=== PATIENT | male | born 1970 | race Caucasian/White ===

== ENCOUNTER 2017-05-29 13:26 | Emergency (ER) | payer MEDICARE ==
[2017-05-29 15:46] LABS: BILIRUBIN,URINE NEGATIVE (NEG); CLARITY,URINE CLEAR; COLOR,URINE YELLOW; GLUCOSE,URINE NEGATIVE (NEG); NITRITE,URINE NEGATIVE (NEG); PH,URINE 6.5; PROTEIN,URINE NEGATIVE (NEG-TRACE)
[2017-05-29 15:53] LABS: BARBITURATES NEG (NEG); BENZODIAZEPINES NEG (NEG); CANNABINOIDS POS (NEG); COCAINE NEG (NEG); METHADONE NEG (NEG); OPIATES NEG (NEG); PHENCYCLIDINE NEG (NEG)
[2017-05-29 16:00] LABS: AMPHETAMINE/METHAMPHETAMINE POS (NEG); ETHANOL, URINE NEG (NEG)
[2017-05-29] MEDS: IV NORMAL SALINE 1000ML BAG 1,000 ML IV ×2 (16:01)
[2017-05-29 16:02] LABS: BACTERIA,URINE 0 /HPF (0-FEW); RBC,URINE 0 /HPF (0-2); WBC,URINE 0 /HPF (0-4)
[2017-05-29 16:16] LABS: ADD MAN DIFF? NO
[2017-05-29 16:17] LABS: BASO # 0.1 x10^3/uL (0.0-0.2); BASO % 1 % (0-3); EOS % 0 % (0-3); HEMATOCRIT 44.2 % (39.0-53.0); HEMOGLOBIN 15.3 g/dL (13.0-17.5); LYMPH # 2.7 x10^3/uL (1.0-4.8); LYMPH % 32 % (24-48); MEAN CORPUSCULAR HEMOGLOBIN 27 pg (25-35); MEAN CORPUSCULAR HGB CONC 35 g/dL (31-37); MEAN CORPUSCULAR VOLUME 79 fL (79-100); MONO # 0.5 x10^3/uL (0.0-1.1); MONO % 6 % (0-9); NEUT # 5.2 x10^3uL (1.8-7.7); NEUT % 61 % (31-73); PLATELET COUNT 331 x10^3/uL (140-400); RED BLOOD COUNT 5.62 x10^6/uL (4.30-5.70); RED CELL DISTRIBUTION WIDTH 13.7 % (11.5-14.5); WHITE BLOOD COUNT 8.5 x10^3/uL (4.0-11.0)
[2017-05-29 16:50] LABS: INFLUENZA A PATIENT NEGATIVE (NEGATIVE); INFLUENZA B PATIENT NEGATIVE (NEGATIVE); OBC FLU VALID
[2017-05-29 17:07] LABS: AGAP ISTAT 15 mmol/L (6-14); BUN ISTAT 13 mg/dL (8-26); CHLORIDE ISTAT 97 mmol/L (98-110); GLUCOSE ISTAT 142 mg/dL (70-99); HEMATOCRIT ISTAT 46 % (37-52); HEMOGLOBIN ISTAT 15.6 g/dL (14-18); POTASSIUM ISTAT 4.2 mmol/L (3.5-5.0); SODIUM ISTAT 137 mmol/L (135-145); TOT CO2 ISTAT 31 mmol/L (23-32)
[2017-05-29 17:58] LABS: ANION GAP 10 (6-14); BLOOD UREA NITROGEN 13 mg/dL (8-26); BUN/CREATININE RATIO 14 (6-20); CARBON DIOXIDE 28 mmol/L (21-32); CHLORIDE 100 mmol/L (98-107); CREATININE 0.9 mg/dL (0.7-1.3); GFR 91.3; GLUCOSE 140 mg/dL (70-99); POTASSIUM 4.6 mmol/L (3.5-5.1); SODIUM 138 mmol/L (136-145)
[2017-05-29 18:00] LABS: ETHANOL < 10 mg/dL (0-10)
[2017-05-29 18:07] LABS: TROPONINI < 0.017 ng/mL (0.000-0.055)
[2017-05-29 18:07] LABS: ALBUMIN 3.4 g/dL (3.4-5.0); ALBUMIN/GLOBULIN RATIO 0.9 (1.0-1.7); ALK PHOS 108 U/L (46-116); ALT (SGPT) 84 U/L (16-63); AST (SGOT) 43 U/L (15-37); TOTAL BILIRUBIN 0.6 mg/dL (0.2-1.0); TOTAL PROTEIN 7.2 g/dL (6.4-8.2)
== END 2017-05-29 17:50 | disposition home or self-care (01) ==
LOC: ER 13:26
DX: R53.1 Weakness (principal); B34.9 Viral infection, unspecified; E78.00 Pure hypercholesterolemia, unspecified; F90.9 Attention-deficit hyperactivity disorder, unspecified type; I10 Essential (primary) hypertension; F41.9 Anxiety disorder, unspecified; F32.9 Major depressive disorder, single episode, unspecified
CPT/HCPCS: 36415; 71045; 80047; 80053; 80307; 81001; 84484; 85025; 87804; 87804-59; 93005; 96360; 96361; 99285-25; G0480; J7030

== ENCOUNTER 2017-10-03 01:41 | Emergency (ER) | payer MEDICARE ==
[2017-10-03] MEDS: HYDROcodone/APAP 5/325MG 1 TAB TABLET PO (02:48)
[2017-10-03] MEDS: IBUPROFEN 800 MG TABLET. PO (02:48)
== END 2017-10-03 02:52 | disposition home or self-care (01) ==
LOC: ER 01:41
DX: K08.89 Other specified disorders of teeth and supporting structures (principal); I10 Essential (primary) hypertension; E78.00 Pure hypercholesterolemia, unspecified; F90.9 Attention-deficit hyperactivity disorder, unspecified type
CPT/HCPCS: 99283

== ENCOUNTER 2018-02-10 00:36 | Emergency (ER) | payer MEDICARE ==
[~2018-02-10] VITALS: Ht 172.7 cm; Wt 77.1 kg
[~2018-02-10 00:36] MED LIST: ATOR10TA60 PO; CLIN300C8 PO; DEXT20TA24 PO; ERGO500027 PO; HYDR-971 PO; IBUP-1060 PO; ICOS0.5C PO; LOSA100T7 PO; OLOP2.5D EACHEYE; VENL150C6 PO
[2018-02-10] MEDS ORDERED: HYDR-971 PO (00:49)
[2018-02-10] MEDS ORDERED: PENI500T PO (00:49)
--- NOTE | 2018-02-10 00:49 | PHYS DOC ---
Past Medical History Past Medical History: Anxiety, Depression, High Cholesterol, Hypertension, Other Additional Past Medical Histor: ADHD,H/A'S Past Surgical History: No Surgical History Alcohol Use: None Drug Use: None Adult General Chief Complaint Chief Complaint: DENTAL PROBLEM HPI HPI Patient is a 47 year old [f__sex] who presents with [] Review of Systems Review of Systems Constitutional: Denies fever or chills [] Eyes: Denies change in visual acuity, redness, or eye pain [] HENT: Denies nasal congestion or sore throat [] Respiratory: Denies cough or shortness of breath [] Cardiovascular: No additional information not addressed in HPI [] GI: Denies abdominal pain, nausea, vomiting, bloody stools or diarrhea [] : Denies dysuria or hematuria [] Musculoskeletal: Denies back pain or joint pain [] Integument: Denies rash or skin lesions [] Neurologic: Denies headache, focal weakness or sensory changes [] Endocrine: Denies polyuria or polydipsia [] All other systems were reviewed and found to be within normal limits, except as documented in this note. Allergies Allergies Allergies Coded Allergies Type Severity Reaction Last Updated Verified No Known Drug Allergies 07/08/15 No Physical Exam Physical Exam Constitutional: Well developed, well nourished, no acute distress, non-toxic appearance. [] HENT: Normocephalic, atraumatic, bilateral external ears normal, oropharynx moist, no oral exudates, nose normal. [] Eyes: PERRLA, EOMI, conjunctiva normal, no discharge. [] Neck: Normal range of motion, no tenderness, supple, no stridor. [] Cardiovascular:Heart rate regular rhythm, no murmur [] Lungs & Thorax: Bilateral breath sounds clear to auscultation [] Abdomen: Bowel sounds normal, soft, no tenderness, no masses, no pulsatile masses. [] Skin: Warm, dry, no erythema, no rash. [] Back: No tenderness, no CVA tenderness. [] Extremities: No tenderness, no cyanosis, no clubbing, ROM intact, no edema. [] Neurologic: Alert and oriented X 3, normal motor function, normal sensory function, no focal deficits noted. [] Psychologic: Affect normal, judgement normal, mood normal. [] EKG EKG [] Radiology/Procedures Radiology/Procedures [] Course & Med Decision Making Course & Med Decision Making Pertinent Labs and Imaging studies reviewed. (See chart for details) [] Dragon Disclaimer Dragon Disclaimer This electronic medical record was generated, in whole or in part, using a voice recognition dictation system. Departure Departure Impression: Primary Impression: Pain, dental Disposition: HOME, SELF-CARE Condition: GOOD Referrals: CLAUDE CODY MD (PCP) Patient Instructions: Dental Pain Scripts Hydrocodone/Apap 5-325 (NORCO 5-325 TABLET) 1 Each Tablet 1 TAB PO PRN Q6HRS PRN for PAIN, #14 TAB 0 Refills Prov: PIPO PINON APRN 02/10/18 Penicillin V Potassium (PENICILLIN V POTASSIUM) 500 Mg Tablet 1 TAB PO TID, #30 TAB Prov: PIPO PINON APRN 02/10/18 PIPO PINON APRN Feb 10, 2018 00:49
[2018-02-10 00:50] VITALS: BP 174/98
== END 2018-02-10 01:02 | disposition home or self-care (01) ==
LOC: ER 00:36
DX: K08.89 Other specified disorders of teeth and supporting structures (principal); I10 Essential (primary) hypertension; E78.00 Pure hypercholesterolemia, unspecified
CPT/HCPCS: 99283

== ENCOUNTER 2018-02-20 00:27 | Emergency (ER) | payer MEDICARE ==
[~2018-02-20] VITALS: Ht 172.7 cm; Wt 80.9 kg
[~2018-02-20 00:27] MED LIST changes: +PENI500T PO
[2018-02-20 00:32] VITALS: BP 174/98
--- NOTE | 2018-02-20 00:57 | PHYS DOC ---
Past Medical History Past Medical History: Anxiety, Depression, High Cholesterol, Hypertension, Other Additional Past Medical Histor: ADHD,H/A'S Past Surgical History: No Surgical History Alcohol Use: None Drug Use: None Adult General Chief Complaint Chief Complaint: MULTIPLE COMPLAINTS HPI HPI Patient is a 47 year old male who presents with several complaints 1 diarrhea. This been present for the past several days. No blood in the stool. Diffuse abdominal cramping is present. Worse with food or drink. No fever. Patient also has nausea but has not thrown up. 2 upper respiratory infection symptoms, nasal congestion, sore throat. Worse with laying down. No relief with over-the- counter Mucinex liquid. No cough. Slightly better with upright position. Reports diffuse myalgias that improve with [id number] ibuprofen but feels nauseated with that.[] Review of Systems Review of Systems Constitutional: Denies fever or chills [] Eyes: Denies change in visual acuity, redness, or eye pain [] HENT: See history of present illness[] Respiratory: Denies cough or shortness of breath [] Cardiovascular: Chest pain or palpitations[] GI: No blood in the stool, no foul odor to the stool[] : Denies dysuria or hematuria [] Musculoskeletal: Denies back pain or joint pain [] Integument: Denies rash or skin lesions [] Neurologic: Denies headache, focal weakness or sensory changes [] Endocrine: Denies polyuria or polydipsia [] All other systems were reviewed and found to be within normal limits, except as documented in this note. Allergies Allergies Allergies Coded Allergies Type Severity Reaction Last Updated Verified No Known Drug Allergies 07/08/15 No Physical Exam Physical Exam Constitutional: Well developed, well nourished, no acute distress, non-toxic appearance. [] HENT: Normocephalic, atraumatic, bilateral external ears normal, oropharynx moist, no oral exudates, nose with clear rhinorrhea. Positive postnasal drainage. [] Eyes: PERRLA, EOMI, conjunctiva normal, no discharge. [] Neck: Normal range of motion, no tenderness, supple, no stridor. [] Cardiovascular:Heart rate regular rhythm, no murmur [] Lungs & Thorax: Bilateral breath sounds clear to auscultation [] Abdomen: Bowel sounds normal, soft, no tenderness, no masses, no pulsatile masses. [] Skin: Warm, dry, no erythema, no rash. [] Back: No tenderness, no CVA tenderness. [] Extremities: No tenderness, no cyanosis, no clubbing, ROM intact, no edema. [] Neurologic: Alert and oriented X 3, normal motor function, normal sensory function, no focal deficits noted. [] Psychologic: Affect normal, judgement normal, mood normal. [] EKG EKG [] Radiology/Procedures Radiology/Procedures [] Course & Med Decision Making Course & Med Decision Making Pertinent Labs and Imaging studies reviewed. (See chart for details) Medical decision-making: Nontoxic patient who has diarrhea. He was recently placed on antibiotics approximately 10 days ago. Do not believe this to be Clostridium difficile. Believe this to be an upper respiratory infection. Patient is nontoxic, oropharynx is clear side from postnasal drainage. Lungs were clear, do not believe this to be an pneumonia process. Patient is afebrile , do not believe this to be an influenza issue. We will attempt better outpatient management of symptoms and have patient start eating yogurt to recolonize his gut with healthy bacteria.[] Dragon Disclaimer Dragon Disclaimer This electronic medical record was generated, in whole or in part, using a voice recognition dictation system. Departure Departure Impression: Primary Impression: Upper respiratory infection Additional Impression: Diarrhea Disposition: ADMITTED INPATIENT Condition: GOOD Referrals: CLAUDE CODY MD (PCP) Follow-up in 2 days Patient Instructions: Diarrhea, Upper Respiratory Infection, Adult Additional Instructions: Follow-up with your regular doctor in 2 days. Drink plenty of fluids. Avoid fatty foods, milk, and pepper. These may make the diarrhea worse. Eat a carbohydrate rich diet for the next 48 hours, this includes bananas, rice, applesauce, and toast. Also add yogurt to your diet to help recolonize your gut with good bacteria. Return to the ER if there is blood in your stool, you develop a fever, and able to tolerate liquids, or any other concerns Problem Qualifiers Primary Impression: Upper respiratory infection URI type: unspecified URI Qualified Codes: J06.9 - Acute upper respiratory infection, unspecified Additional Impression: Diarrhea Diarrhea type: unspecified type Qualified Codes: R19.7 - Diarrhea, unspecified CHELI DUMONT DO Feb 20, 2018 00:57
[2018-02-20] MEDS ORDERED: HYDR-971 PO (20:32)
[2018-02-20] MEDS ORDERED: IBUP-1060 PO (20:32)
== END 2018-02-20 01:10 | disposition home or self-care (01) ==
LOC: ER 00:27
DX: R19.7 Diarrhea, unspecified (principal); J06.9 Acute upper respiratory infection, unspecified; R10.84 Generalized abdominal pain; M79.10 Myalgia, unspecified site; I10 Essential (primary) hypertension; E78.00 Pure hypercholesterolemia, unspecified; F90.9 Attention-deficit hyperactivity disorder, unspecified type
CPT/HCPCS: 99283

== ENCOUNTER 2018-02-20 19:27 | Emergency (ER) | payer MEDICARE ==
[~2018-02-20] VITALS: Ht 172.7 cm; Wt 78.9 kg
[2018-02-20 19:32] VITALS: BP 154/92
[2018-02-20] MEDS ORDERED: IBUP-1060 PO (20:32)
[2018-02-20] MEDS ORDERED: HYDR-971 PO (20:32)
--- NOTE | 2018-02-20 20:33 | PHYS DOC ---
Past Medical History Past Medical History: Anxiety, Depression, High Cholesterol, Hypertension, Other Additional Past Medical Histor: ADHD,H/A'S Past Surgical History: No Surgical History Alcohol Use: None Drug Use: None Adult General Chief Complaint Chief Complaint: HEADACHE HPI HPI Patient is a 47 year old male who presents with was here last night at midnight for same complaints with having a sinus headache, body aches, viral symptoms. Patient states that he talked to his primary care doctor today and he has an appointment tomorrow. The primary care doctor said that she is to call in 800 mg of ibuprofen but when he went to the pharmacy was not there. Patient rates his pain a 10 out of 10. He is alert and oriented. Temperature is 98.4, 99 heart rate, 154/92, 99% on room air. Ambulatory. States he's been taking 1 Tylenol every 4 hours for his pain. Review of Systems Review of Systems Constitutional: Denies fever or chills [] Eyes: Denies change in visual acuity, redness, or eye pain [] HENT: Denies nasal congestion or sore throat [] Respiratory: Denies cough or shortness of breath [] Cardiovascular: No additional information not addressed in HPI [] GI: Denies abdominal pain, nausea, vomiting, bloody stools or diarrhea [] : Denies dysuria or hematuria [] Musculoskeletal: Denies back pain or joint pain [] Integument: Denies rash or skin lesions [] Neurologic: Frontal headache. Denies focal weakness or sensory changes [] All other systems were reviewed and found to be within normal limits, except as documented in this note. Allergies Allergies Allergies Coded Allergies Type Severity Reaction Last Updated Verified No Known Drug Allergies 07/08/15 No Physical Exam Physical Exam Constitutional: Well developed, well nourished, no acute distress, non-toxic appearance. [] HENT: Normocephalic, atraumatic, bilateral external ears normal, oropharynx moist, no oral exudates, nose normal. [] Eyes: PERRLA, EOMI, conjunctiva normal, no discharge. [] Neck: Normal range of motion, no tenderness, supple, no stridor. [] Cardiovascular:Heart rate regular rhythm, no murmur [] Lungs & Thorax: Bilateral breath sounds clear to auscultation [] Abdomen: Bowel sounds normal, soft, no tenderness, no masses, no pulsatile masses. [] Skin: Warm, dry, no erythema, no rash. [] Back: No tenderness, no CVA tenderness. [] Extremities: No tenderness, no cyanosis, no clubbing, ROM intact, no edema. [] Neurologic: Alert and oriented X 3, normal motor function, normal sensory function, no focal deficits noted. [] Psychologic: Affect normal, judgement normal, mood normal. [] Current Patient Data Vital Signs Vital Signs Date Time Temp Pulse Resp B/P (MAP) Pulse Ox O2 Delivery O2 Flow Rate FiO2 02/20/18 19:32 98.4 99 16 154/92 (112) 98 Room Air 98.4 EKG EKG [] Radiology/Procedures Radiology/Procedures [] Course & Med Decision Making Course & Med Decision Making Patient is a 47 year old male who presents with was here last night at midnight for same complaints with having a sinus headache, body aches, viral symptoms. Patient states that he talked to his primary care doctor today and he has an appointment tomorrow. The primary care doctor said that she is to call in 800 mg of ibuprofen but when he went to the pharmacy was not there. Patient rates his pain a 10 out of 10. He is alert and oriented. Temperature is 98.4, 99 heart rate, 154/92, 99% on room air. Ambulatory. States he's been taking 1 Tylenol every 4 hours for his pain. Skin pink warm and dry. Lungs are clear to auscultation all lobes. Heart rate regular no murmur. Afebrile. PERRLA. Patient is nontoxic appearing states he is just wanting Vicodin for his pain. Patient will be given a prescription for 4 [place] and he is to follow-up with his primary care as scheduled tomorrow. Patient is stable and in no distress. Dragon Disclaimer Dragon Disclaimer This electronic medical record was generated, in whole or in part, using a voice recognition dictation system. Departure Departure Impression: Primary Impression: Headache Disposition: HOME, SELF-CARE Condition: STABLE Referrals: HERLINDA ZAMUDIO APRN (PCP) Patient Instructions: General Headache Without Cause Additional Instructions: Follow-up with her primary care tomorrow as scheduled. Take medications as prescribed. Scripts Hydrocodone/Apap 5-325 (NORCO 5-325 TABLET) 1 Each Tablet 1 TAB PO PRN Q6HRS PRN for PAIN, #4 TAB 0 Refills Prov: BENOIT UNGER GAS ENGINE OPERATOR 02/20/18 Ibuprofen (IBUPROFEN) 800 Mg Tablet 800 MG PO PRN Q6HRS PRN for INFLAMMATION, #10 TAB Prov: BENIOT UNGER GAS ENGINE OPERATOR 02/20/18 Problem Qualifiers Primary Impression: Headache Headache type: unspecified Headache chronicity pattern: chronic headache Intractability: not intractable Qualified Codes: R51 - Headache BENOIT UNGER G[employer] ENGINE OPERATOR Feb 20, 2018 20:33
== END 2018-02-20 20:40 | disposition home or self-care (01) ==
LOC: ER 19:27
DX: R51 Headache (principal); M79.10 Myalgia, unspecified site; E78.00 Pure hypercholesterolemia, unspecified; I10 Essential (primary) hypertension; F41.9 Anxiety disorder, unspecified; F32.9 Major depressive disorder, single episode, unspecified; F90.9 Attention-deficit hyperactivity disorder, unspecified type
CPT/HCPCS: 99283

== ENCOUNTER 2018-03-08 20:22 | Emergency (ER) | payer MEDICARE ==
[~2018-03-08] VITALS: Ht 172.7 cm; Wt 79.4 kg
[~2018-03-08 20:22] MED LIST changes: +HYDR-3164 PO; -HYDR-971 PO
[2018-03-08] MEDS ORDERED: cloNIDine HCL 0.1 MG TABLET PO ONE (21:00)
[2018-03-08] MEDS ORDERED: ACETAMINOPHEN 500 MG TABLET PO ONE (21:00)
[2018-03-08 21:01] VITALS: BP 131/81
--- NOTE | 2018-03-09 03:31 | PHYS DOC ---
Past Medical History Past Medical History: Anxiety, Depression, High Cholesterol, Hypertension, Migraines, Other Additional Past Medical Histor: ADHD,H/A'S, Insomnia Past Surgical History: No Surgical History Alcohol Use: None Drug Use: None Adult General Chief Complaint Chief Complaint: HEADACHE HPI HPI Patient is a 47 year old male with history of ADD, insomnia and recurrent migraines who presents migraine-like headache. Patient states he has been unable to sleep for the past 2 evening and is currently out of Ambien. He is requesting an Ambien refill. Orts typical migraine-like headache with dull throbbing frontal headache. No nausea vomiting or photophobia. Patient states he does not have appointment with his primary care physician until March 19 in that he requires medications to help himself of sleep. Denies change in headaches severity location and quality or duration. This is not the worst headache of the patient's life. [] Review of Systems Review of Systems Review symptoms as prescribed. All other systems were reviewed and found to be within normal limits, except as documented in this note. Current Medications Current Medications Current Medications Medications (Trade) Dose Ordered Sig/Day Start Time Stop Time Status Last Admin Dose Admin Acetaminophen (Tylenol) 1,000 mg 1X ONCE 03/08/18 21:00 03/08/18 21:01 DC 03/08/18 21:03 1,000 MG Clonidine HCl (Catapres) 0.2 mg 1X ONCE 03/08/18 21:00 03/08/18 21:07 DC Allergies Allergies Allergies Coded Allergies Type Severity Reaction Last Updated Verified No Known Drug Allergies 07/08/15 No Physical Exam Physical Exam Constitutional: Well developed, well nourished, no acute distress, non-toxic appearance. [] HENT: Normocephalic, atraumatic, bilateral external ears normal, oropharynx moist, nose normal. [] Eyes: PERRLA, EOMI, conjunctiva normal. [] Neck: Normal range of motion, no tenderness, supple. [] Cardiovascular:Heart rate regular rhythm, no murmur [] Neurologic: Alert and oriented X 3, normal motor function, normal sensory function, no focal deficits noted. [] Psychologic: Affect normal, judgement normal, mood normal. [] Current Patient Data Vital Signs Vital Signs Date Time Temp Pulse Resp B/P (MAP) Pulse Ox O2 Delivery O2 Flow Rate FiO2 03/08/18 21:01 75 97 03/08/18 20:30 98.0 16 176/108 (130) Room Air 98.0 EKG EKG [] Radiology/Procedures Radiology/Procedures [] Course & Med Decision Making Course & Med Decision Making Pertinent Labs and Imaging studies reviewed. (See chart for details) [Pressure improved without treatment. Tylenol provided for headache relief. Discussed with patient that I was not comfortable providing medication refill for Ambien as insomnia as sedative by scope practice but did recommend that he take Ambien and follow-up with his primary care physician.] Dragon Disclaimer Dragon Disclaimer This electronic medical record was generated, in whole or in part, using a voice recognition dictation system. Departure Departure Impression: Primary Impression: Accelerated hypertension Additional Impressions: Insomnia Headache Disposition: 01 HOME, SELF-CARE Condition: GOOD Referrals: AGUSTÍN APONTE MD Patient Instructions: Insomnia-Brief, Migraine Headache, [id number], Hypertension, [id number] Additional Instructions: Please take melatonin and an additional here trazodone for sleep induction. Continue home medications and take this dose of blood pressure medication upon returning home this evening. Follow-up with your PCP for further management of insomnia and upper tension. Return to the ED if new or worsening symptoms. Problem Qualifiers MAN MENEZES DO Mar 09, 2018 03:31
== END 2018-03-08 21:24 | disposition home or self-care (01) ==
LOC: ER 20:22
DX: R51 Headache (principal); I10 Essential (primary) hypertension; G47.00 Insomnia, unspecified; G43.909 Migraine, unspecified, not intractable, without status migrainosus; E78.00 Pure hypercholesterolemia, unspecified; F32.9 Major depressive disorder, single episode, unspecified; F41.9 Anxiety disorder, unspecified; F90.9 Attention-deficit hyperactivity disorder, unspecified type
CPT/HCPCS: 99283

== ENCOUNTER 2018-06-26 06:08 | Emergency (ER) | payer MEDICARE ==
[~2018-06-26] VITALS: Ht 172.7 cm; Wt 77.1 kg
[~2018-06-26 06:08] MED LIST changes: +LOSA100T14 PO; -LOSA100T7 PO
[2018-06-26 06:29] VITALS: BP 148/86
[2018-06-26] MEDS ORDERED: CYCL10TA2 PO (06:46)
[2018-06-26] MEDS ORDERED: PRED20TA PO (06:46)
[2018-06-26] MEDS ORDERED: IBUP-1060 PO (06:46)
--- NOTE | 2018-06-26 06:47 | PHYS DOC ---
Past Medical History Past Medical History: Angina, Anxiety, Depression, Diabetes-Type II, High Cholesterol, Hypertension Additional Past Medical Histor: ADHD,H/A'S, Insomnia Past Surgical History: No Surgical History Alcohol Use: None Drug Use: None Adult General Chief Complaint Chief Complaint: MUSCLE SPASM/CRAMP HPI HPI Patient is a 47 year old presented to ER today for evaluation of left-sided neck pain and muscle spasm in this stiffness for the last 2 days. Patient started symptom after he was studying, bending his neck down to read for a long time. He denies any chest pain, no headache, no fever, no cough. Patient denies any weakness or numbness in his upper extremity. Denied any recent injury. Review of Systems Review of Systems Constitutional: Denies fever or chills [] Eyes: Denies change in visual acuity, redness, or eye pain [] HENT: Denies nasal congestion or sore throat [] Respiratory: Denies cough or shortness of breath [] Cardiovascular: No additional information not addressed in HPI [] GI: Denies abdominal pain, nausea, vomiting, bloody stools or diarrhea [] : Denies dysuria or hematuria [] Musculoskeletal: POSITIVE FOR NECK PAIN AND STIFFNESS. Integument: Denies rash or skin lesions [] Neurologic: Denies headache, focal weakness or sensory changes [] Endocrine: Denies polyuria or polydipsia [] All other systems were reviewed and found to be within normal limits, except as documented in this note. Current Medications Current Medications Current Medications Medications (Trade) Dose Ordered Sig/Day Start Time Stop Time Status Last Admin Dose Admin Dexamethasone Sodium Phosphate (Decadron) 10 mg 1X ONCE 06/26/18 07:00 06/26/18 07:01 Ketorolac Tromethamine (Toradol Im) 60 mg 1X ONCE 06/26/18 07:00 06/26/18 07:01 Allergies Allergies Allergies Coded Allergies Type Severity Reaction Last Updated Verified No Known Drug Allergies 07/08/15 No Physical Exam Physical Exam Constitutional: Well developed, well nourished, no acute distress, non-toxic appearance. [] HENT: Normocephalic, atraumatic, bilateral external ears normal, oropharynx moist, no oral exudates, nose normal. [] Eyes: PERRLA, EOMI, conjunctiva normal, no discharge. [] Neck: left paramuscle tensed and tender, decrease range of motion to the left side. No midline vertebral tenderness. Cardiovascular:Heart rate regular rhythm, no murmur [] Lungs & Thorax: Bilateral breath sounds clear to auscultation [] Abdomen: Bowel sounds normal, soft, no tenderness, no masses, no pulsatile masses. [] Skin: Warm, dry, no erythema, no rash. [] Back: No tenderness, no CVA tenderness. [] Extremities: No tenderness, no cyanosis, no clubbing, ROM intact, no edema. [] Neurologic: Alert and oriented X 3, normal motor function, normal sensory function, no focal deficits noted. [] Psychologic: Affect normal, judgement normal, mood normal. [] Current Patient Data Vital Signs Vital Signs Date Time Temp Pulse Resp B/P (MAP) Pulse Ox O2 Delivery O2 Flow Rate FiO2 06/26/18 06:29 97.7 73 16 148/86 (106) 98 Room Air 97.7 EKG EKG [] Radiology/Procedures Radiology/Procedures [] Course & Med Decision Making Course & Med Decision Making Pertinent Labs and Imaging studies reviewed. (See chart for details) [] Dragon Disclaimer Dragon Disclaimer This electronic medical record was generated, in whole or in part, using a voice recognition dictation system. Departure Departure Impression: Primary Impression: Torticollis, acute Disposition: 01 HOME, SELF-CARE Condition: STABLE Referrals: HERLINDA ZAMUDIO APRN (PCP) follow up with your pcp in two days for reevaluation. Patient Instructions: Torticollis, Acute Scripts Prednisone (PREDNISONE) 20 Mg Tablet 1 TAB PO DAILY, #10 TAB Prov: SAMAN AREVALO DO 06/26/18 Ibuprofen (IBUPROFEN) 800 Mg Tablet 800 MG PO PRN Q8HRS PRN for INFLAMMATION, #30 TAB Prov: SAMAN AREVALO DO 06/26/18 Cyclobenzaprine Hcl (CYCLOBENZAPRINE HCL) 10 Mg Tablet 1 TAB PO TID PRN for MUSCLE SPASMS, #21 TAB Prov: SAMAN AREVALO DO 06/26/18 SAMAN AREVALO DO Jun 26, 2018 06:46
[2018-06-26] MEDS ORDERED: DEXAMETHASONE SOD PHOS 4 MG/ML VIAL IM ONE (07:00)
[2018-06-26] MEDS ORDERED: KETOROLAC 60 MG/2 ML VIAL. IM ONE (07:00)
== END 2018-06-26 07:02 | disposition home or self-care (01) ==
LOC: ER 06:08
DX: M43.6 Torticollis (principal); E78.00 Pure hypercholesterolemia, unspecified; I10 Essential (primary) hypertension; E11.9 Type 2 diabetes mellitus without complications
CPT/HCPCS: 96372; 99283; J1100; J1885

== ENCOUNTER 2019-01-10 11:57 | Emergency (ER) | payer MEDICARE ==
[~2019-01-10] VITALS: Ht 172.7 cm; Wt 78.9 kg
[~2019-01-10 11:57] MED LIST changes: +CYCL10TA2 PO; +PRED20TA PO
[2019-01-10 12:07] VITALS: BP 154/104
[2019-01-10] MEDS ORDERED: ORPH100T PO (13:01)
--- NOTE | 2019-01-10 13:02 | PHYS DOC ---
Past Medical History Past Medical History: Angina, Anxiety, Depression, Diabetes-Type II, High Cholesterol, Hypertension, Other Additional Past Medical Histor: ADHD,H/A'S, Insomnia Past Surgical History: No Surgical History Alcohol Use: None Drug Use: None Adult General Chief Complaint Chief Complaint: LOWER BACK PAIN OR INJURY HPI HPI Patient is a 48 year old male that presents with back pain since yesterday. The patient states that his pain 6 out of 10 in severity and sharp. Patient has history of back pain. Review of Systems Review of Systems Constitutional: Denies fever or chills [] Eyes: Denies change in visual acuity, redness, or eye pain [] HENT: Denies nasal congestion or sore throat [] Respiratory: Denies cough or shortness of breath [] Cardiovascular: No additional information not addressed in HPI [] GI: Denies abdominal pain, nausea, vomiting, bloody stools or diarrhea [] : Denies dysuria or hematuria [] Musculoskeletal: Reports back pain. Integument: Denies rash or skin lesions [] Neurologic: Denies headache, focal weakness or sensory changes [] Endocrine: Denies polyuria or polydipsia [] Complete systems were reviewed and found to be within normal limits, except as documented in this note. Current Medications Current Medications Current Medications Medications (Trade) Dose Ordered Sig/[facility] Start Time Stop Time Status Last Admin Dose Admin Orphenadrine Citrate (Norflex) 60 mg 1X ONCE 01/10/19 13:15 01/10/19 13:16 Allergies Allergies Allergies Coded Allergies Type Severity Reaction Last Updated Verified No Known Drug Allergies 07/08/15 No Physical Exam Physical Exam Constitutional: Well developed, well nourished, no acute distress, non-toxic appearance. [] HENT: Normocephalic, atraumatic, bilateral external ears normal, oropharynx moist, no oral exudates, nose normal. [] Eyes: PERRLA, EOMI, conjunctiva normal, no discharge. [] Neck: Normal range of motion, no tenderness, supple, no stridor. [] Cardiovascular:Heart rate regular rhythm, no murmur [] Lungs & Thorax: Bilateral breath sounds clear to auscultation [] Abdomen: Bowel sounds normal, soft, no tenderness, no masses, no pulsatile masses. [] Skin: Warm, dry, no erythema, no rash. [] Back: Tenderness to right side of back, no spinal tenderness. Extremities: No tenderness, no cyanosis, no clubbing, ROM intact, no edema. [] Neurologic: Alert and oriented X 3, normal motor function, normal sensory function, no focal deficits noted. [] Psychologic: Affect normal, judgement normal, mood normal. [] Current Patient Data Vital Signs Vital Signs Date Time Temp Pulse Resp B/P (MAP) Pulse Ox O2 Delivery O2 Flow Rate FiO2 01/10/19 12:07 97.8 76 18 154/104 (121) 98 Room Air 97.8 EKG EKG [] Radiology/Procedures Radiology/Procedures [] Course & Med Decision Making Course & Med Decision Making Pertinent Labs and Imaging studies reviewed. (See chart for details) Will give IM norflex and write script. Appears to be musculoskeletal in nature. Dragon Disclaimer Dragon Disclaimer This electronic medical record was generated, in whole or in part, using a voice recognition dictation system. Departure Departure Impression: Primary Impression: Musculoskeletal back pain Disposition: HOME, SELF-CARE Condition: STABLE Referrals: HERLINDA ZAMUDIO APRN (PCP) Patient Instructions: Musculoskeletal Pain Additional Instructions: Thank you for visiting [facility]. We appreciate you trusting us with your care. If any additional problems come up don't hesitate to return to visit us. Please follow up with your primary care provider so they can plan additional care if needed and know about the problem that you had. If symptoms worsen come back to the Emergency Department. Any concerning symptoms that start such as chest pain, shortness of air, weakness or numbness on one side of the body, running high fevers or any other concerning symptoms return to the ER. Scripts Orphenadrine Citrate (ORPHENADRINE CITRATE) 100 Mg Tablet.er 1 TAB PO BID PRN for MUSCLE PAIN for 4 Days, #8 TAB Prov: AGUSTÍN CUMMINGS APRN 01/10/19 AGUSTÍN CUMMINGS APRN Jan 10, 2019 13:02
[2019-01-10] MEDS ORDERED: ORPHENADRINE CITRATE 60 MG/2 ML VIAL. IM ONE (13:15)
== END 2019-01-10 13:08 | disposition home or self-care (01) ==
LOC: ER 11:57
DX: M54.5 Low back pain (principal); E78.00 Pure hypercholesterolemia, unspecified; E11.9 Type 2 diabetes mellitus without complications; I10 Essential (primary) hypertension; F90.9 Attention-deficit hyperactivity disorder, unspecified type
CPT/HCPCS: 99283

== ENCOUNTER → 2021-08-24 | Emergency (ER) | payer BC, MEDICARE ==
[~2021-08-24] VITALS: Ht 172.7 cm; Wt 77.3 kg
[~2021-08-24] MED LIST changes: +CLIN-94 PO; -CLIN300C8 PO; +CYCL10TA19 PO; -CYCL10TA2 PO; +DEXT20CA17 PO; +INSU100I11 SQ; +INSU100V8 SQ; +KETOROLAC 15 MG/ML VIAL. ONE; -OLOP2.5D EACHEYE; +OLOP2.5D12 EACHEYE; +ORPH100T PO; +TAMSULOSIN 0.4 MG CAP.ER.24H. PO ONE; +ZOLP10TA PO
[2021-08-24 02:55] VITALS: BP 204/98
[2021-08-24 03:27] LABS: BACTERIA,URINE 0 /HPF (0-FEW); WBC,URINE OCC /HPF (0-4)
--- NOTE | 2021-08-24 09:34 | RAD ---
Exam Date: 08/24/2021 3:[address] ABDOMEN+PELVIS WO Indication: Reason: ABDOMINAL PAIN / Spl. Instructions: / History: . TECHNIQUE: CT examination of the abdomen and pelvis was performed without oral or intravenous contra st. One or more of the following dose reduction techniques were utilized: *Automated exposure control (AEC) *Adjustment of mA and/or kV according to patient size *Use of iterative reconstruction technique *CT scan done according to ALARA, or ALARA/IMAGE GENTLY FINDINGS: The visualized lung bases are clear. Heart is enlarged. The liver, gallbladder, spleen, pancreas, and adrenal glands are normal. There is a 3 mm calculus in the distal left ureter resulting in mild left hydroureteronephrosis and p rominent left perinephric stranding. The kidneys are otherwise normal bilaterally. No right hydronephrosis or hydroureter is seen. No ri ght urinary tract calculi are seen. Urinary bladder is normal in appearance. Diverticulosis coli is seen about bowel obstruction or inflammation. The appendix is normal. Mild atherosclerotic calcifications are seen. No lymphadenopathy or ascites is seen. Degenerative changes are seen in the spine. IMPRESSION: 3 mm calculus in the distal left ureter resulting in mild left hydroureteronephrosis. Electronically signed by: Oren Cotton MD (08/24/2021 9:31 AM) [id number]
== END | disposition home or self-care (01) ==
LOC: ER 02:28
DX: N20.0 Calculus of kidney (principal)
CPT/HCPCS: 74176; 81001; 96374; 99284-25